=== PATIENT | female | born 2000 | race Caucasian/White ===

== ENCOUNTER 2019-01-15 02:20 | Emergency (ER) | payer SELFPAY ==
[2019-01-15] MEDS ORDERED: ACETAMINOPHEN 325 MG TABLET PO ONE (03:41)
[2019-01-15] MEDS ORDERED: LIDOCAINE 4% TRANSPARENT DRESSING 5 GM KIT TP ONE (04:30)
[2019-01-15] MEDS ORDERED: LIDOCAINE 1%/EPINEPHRINE INJ 20 ML VIAL INJ ONE (04:31)
[2019-01-15] MEDS ORDERED: DIAZEPAM 5 MG TABLET PO ONE (04:32)
--- NOTE | 2019-01-15 04:34 | ER Document Report ---
ED Wound - General Chief Complaint: Fall Injury Stated Complaint: LIP LACERATION Time Seen by Provider: 01/15/19 04:24 Primary Care Provider: DORIS ORELLANA MD [ACTIVE STAFF] - Follow up as needed Notes: Patient is a 18-year-old female that comes to the emergency department for chief complaint of laceration to her lower lip. She states she tripped, fell, scraped her lip on the ground causing an open laceration underneath her lip. She denies neck pain, loss of consciousness, headache, vomiting. She denies any alcohol. Friends at bedside and confirm this history. Patient is not up-to-date on her tetanus. She denies , currently on her menstrual cycle. Denies any daily medications. TRAVEL OUTSIDE OF THE [place] IN LAST 30 DAYS: No - Related Data Allergies/Adverse Reactions: No Known Allergies Allergy (Verified 01/15/19 06:00) Past Medical History - General Information source: Patient - Social History Smoking Status: Never Smoker Frequency of alcohol use: None Drug Abuse: None Lives with: Family Family History: Reviewed & Not Pertinent - Medical History Medical History: Negative Surgical Hx: Negative - Immunizations Immunizations up to date: No Hx Diphtheria, Pertussis, Tetanus Vaccination: Yes Review of Systems - Review of Systems Constitutional: No symptoms reported EENT: See HPI Cardiovascular: No symptoms reported Respiratory: No symptoms reported Gastrointestinal: No symptoms reported Genitourinary: No symptoms reported Female Genitourinary: No symptoms reported Musculoskeletal: No symptoms reported Skin: See HPI Hematologic/Lymphatic: No symptoms reported Neurological/Psychological: No symptoms reported Physical Exam - Vital signs Vitals: Temp Pulse Resp BP Pulse Ox 100 F 140 H 16 139/84 H 98 01/15/19 02:28 01/15/19 02:28 01/15/19 02:28 01/15/19 02:28 01/15/19 02:28 - Notes Notes: GENERAL: Alert, interacts well. Anxious but not in distress. HEAD: Normocephalic, atraumatic. EYES: Pupils equal, round, and reactive to light. Extraocular movements intact. ENT: Oropharynx unremarkable. Airway patent. Nares patent, no nasal septal hematoma, TM's intact. -There is no evidence of injury to the teeth or gumline. Right lower lip is swollen, there is an extensive laceration through the vermilion border and laterally in the lip. No other signs of trauma. NECK: Full range of motion. Supple. Trachea midline. LUNGS: Clear to auscultation bilaterally, no wheezes, rales, or rhonchi. No respiratory distress. HEART: Tachycardic, normal rhythm. No murmur ABDOMEN: Soft, non-tender. Non-distended. Bowel sounds present in all 4 quadrants. GENITOURINARY: Deferred EXTREMITIES: Moves all 4 extremities spontaneously. No edema, normal radial and dorsalis pedis pulses bilaterally. No cyanosis. BACK: no cervical, thoracic, lumbar midline tenderness. No saddle anesthesia, normal distal neurovascular exam. NEUROLOGICAL: Alert and oriented x3. Normal speech. [cranial nerves II through XII grossly intact]. PSYCH: Anxious appearing SKIN: Warm, dry, normal turgor. No rashes or lesions noted. Course - Re-evaluation Re-evalutation: Patient does not smell of alcohol or appear intoxicated. She is alert and slightly anxious, has a laceration of the right lower lip, however there is no other signs of injury. No neck pain, no neurological symptoms reported sugg esting significant head injury. Patient was provided Valium for anxiety for the procedure. This did help, her tachycardia resolved, she tolerated the procedure well. Lip was repaired with good results. I did place her on antibiotic because of the open nature of the wound and the lip location. Plastic referral provided. Discussed care, expectations, follow-up, return precautions. Patient and sister state satisfaction and agreement. - Vital Signs Vital signs: Temp Pulse Resp BP Pulse Ox 98.7 F 94 16 134/77 H 100 01/15/19 06:32 01/15/19 06:32 01/15/19 06:32 01/15/19 06:32 01/15/19 06:32 Procedures - Laceration/Wound Repair Right lower lip Wound length (cm): 3.5 Wound's Depth, Shape: Irregular, Flap Laceration pre-procedure: Sterile PPE donned, Sterile drapes applied, Shur-Clens applied Anesthetic type: 1% Lidocaine w/epi Volume Anesthetic (mLs): 4 Wound explored: Clean, No foreign body removed Wound Repaired With: Sutures Suture Size/Type: 6:0, Nylon Number of Sutures: 11 Layer Closure?: No Post-procedure NV exam normal: Yes Complications: No Discharge - Discharge Clinical Impression: Lip laceration Qualifiers: Encounter type: initial encounter Qualified Code(s): S01.511A - Laceration without foreign body of lip, initial encounter Condition: Stable Disposition: HOME, SELF-CARE Instructions: Tetanus Immunization Given ([facility]) Additional Instructions: The laceration of the lip has been repaired. Sutures should come out in approximately 7 days. This can be performed at basically any medical facility.. Take the antibiotic daily as prescribed to avoid infection. Keep area clean, clean with soap and water, dab dry. Avoid soaking or extreme stretching of the lip. You can apply a thin film of topical antibiotic to the area. Take the provided pain medication at night if needed to sleep, use Tylenol and ibuprofen during the day if needed. You can gently ice the area as well. After the sutures have been removed you can reduce the scarring by applying a moisturizing ointment to the area once a day with gentle rubbing motion. For cosmetic concerns you can also follow-up with the plastic surgeon referral, Dr. Orellana listed. Return for any concerning symptoms including signs of infection such as pain, swelling, spreading redness, fever, discolored discharge, or any other concerning symptoms. Prescriptions: Cephalexin Monohydrate [Keflex 500 mg Capsule] 500 mg PO TID 5 Days #15 capsule Referrals: DORIS ORELLANA MD [ACTIVE STAFF] - Follow up as needed
[2019-01-15] MEDS ORDERED: DIPH/PERTUSS(ACELL)/TETANUS VAC/PF 0.5 ML SYR (>=10YO) IM ONE (06:00)
[2019-01-15] MEDS ORDERED: HYDROCODONE/ACETAMINOPHEN 5-325 MG (6 TAB/ER DISP) PO PRN (06:00)
[2019-01-15 06:33] VITALS: BP 134/77
== END 2019-01-15 06:32 | disposition home or self-care (01) ==
LOC: ER 02:20
DX: S01.511A Laceration without foreign body of lip, initial encounter (principal); W19.XXXA Unspecified fall, initial encounter; F41.9 Anxiety disorder, unspecified; R00.0 Tachycardia, unspecified
CPT/HCPCS: 99282; 90471; 90715; 12013; J3490 ×2